=== PATIENT | female | born 1960 | race Caucasian/White ===

== ENCOUNTER → 2016-09-21 | Outpatient (CLI) | payer OTHER | LOC: FIMAGING 12:12 | DX: Z12.31 Encounter for screening mammogram for malignant neoplasm of breast (principal) | CPT/HCPCS: G0202 ==

== ENCOUNTER 2018-07-13 18:39 | Emergency (ER) | payer OTHER ==
--- NOTE | 2018-07-13 18:45 | EDPHY ---
H & P Time Seen by Provider: 07/13/18 18:44 - Medical/Surgical History Hx Diabetes: No - Social History Smoking Status: Former smoker Constitutional: Initial Vital Signs Heart Rate 89 07/13/18 18:47 Respiratory Rate 16 07/13/18 18:47 Blood Pressure 165/76 H 07/13/18 18:47 O2 Sat (%) 94 07/13/18 18:47 O2 Delivery Mode Room Air Allergies/Adverse Reactions: meloxicam Allergy (Verified 07/08/18 15:01) Sulfa (Sulfonamide Antibiotics) Allergy (Verified 07/08/18 15:01) Home Medications: Medication Instructions Recorded LORazepam [Ativan 1 mg (RX)] 1 mg PO QID PRN #7 tab 07/13/18 Medical Decision Making ED Course/Re-evaluation: CHIEF COMPLAINT: Palpitations HISTORY OF PRESENT ILLNESS: This patient is a 58 year old female arriving with her family. She states she is here because she "[messed] up". She has history of alcoholism and has been sober for about 5 ears, but started drinking heavily again about 10 days ago. She has an upcoming hip replacement surgery in six days with Dr. Sanabria and states she wants help to stop drinking so that she can proceed with surgery. Today, she complains of heart palpitations and difficulty concentrating. She states she feels her "brain isn't working". She states her last drink was pinot grigio, shortly prior to arrival here. She generally drinks this or vodka. She is feeling jittery currently and believes this is due to anxiety about her surgery rather than withdrawal at this time. She and her family are additionally concerned for cardiac etiology of her symptoms and wish to rule out any evidence of MO or other acute cardiac processes. She denies chest pain, shortness of breath, fever, or other associated symptoms. REVIEW OF SYSTEMS: A comprehensive 10 system review of systems is otherwise negative aside from elements mentioned in the history of present illness and medical decision making. PHYSICAL EXAM: HR, BP, O2 Sat, RR. Temp noted General Appearance: Alert, well hydrated, appropriate, and non-toxic appearing. Head: Atraumatic without scalp tenderness or obvious injury Eyes: Pupils equal, round, reactive to light and accommodation, EOMI, no trauma , no injection. Ears: Clear bilaterally, no perforation, normal landmarks Nose: Atraumatic, no rhinorrhea, clear. Throat: There is no erythema or exudates, no lesions, normal tonsils, mucus membranes moist. Neck: Supple, 2+ carotid upstroke, nontender, no lymphadenopathy. Respiratory: No retractions, no distress, no wheezes, and no accessory muscle use. Lungs are clear to auscultation bilaterally. Cardiovascular: Regular rate and rhythm, no murmurs, rubs, or gallops. Bilateral carotid, radial, dorsalis pedis, and posterior tibial pulses intact. Good capillary refill all extremities. Gastrointestinal: Abdomen is soft, nontender, non-distended, no masses, no rebound, no guarding, no peritoneal signs. Musculoskeletal: Normal active ROM of all extremities, atraumatic. Neurological: Alert, appropriate, and interactive. The patient has normal DTRs and non-focal cranial nerves, motor, sensory, and cerebellar exam. Skin: No rashes, good turgor, no nodules on palpation. Past medical history: History of alcoholism, sober for 5 years until current episode. Past surgical history: Noncontributory Family history: Noncontributory Social history: Family at bedside. Lives in [place]. Does not abuse tobacco or illicit drugs. DIFFERENTIAL DIAGNOSIS: The differential diagnosis for the patient's chest pain included but was not limited to myocardial ischemia, pulmonary embolus, chest wall pain, pleural inflammation, and pulmonary infectious causes. MEDICAL DECISION MAKIN58 y/o female with history of alcoholism presents with palpitations after drinking heavily for the past 10 days after five years of sobriety. She and her family are concerned for cardiac etiology of symptoms. Plan for EKG, labs including CBC, chemistries, troponin. The 12 lead EKG was interpreted by myself. See hard copy and/or "tracemaster" electronic copy for interpretation. Sinus rhythm. No evidence of ischemia. LFTs elevated. Labs otherwise largely unremarkable. Troponin negative. Reassessed. Discussed negative cardiac workup. Plan to discharge home in good condition. Discussed follow up at the [facility], but the patient and her family prefer management at home. The patient agrees to go home with her mother this evening. We discussed the importance of remaining sober for her surgery. She understands this and wishes to comply. I discussed care and withdrawal with her and her mother. I will provide a prescription for Ativan for withdrawal symptoms and Zofran for nausea relief. Dosing instructions discussed in detail. The patient's mother will manage her medication. The patient agrees with this plan. Follow and return precautions discussed. The patient and her family are comfortable with this plan. - Data Points Laboratory Results: Laboratory Results 07/13/18 18:50 07/13/18 18:50 07/13/18 07/13/18 07/13/18 18:55 18:50 18:50 WBC 5.82 10^3/uL 10^3/uL (3.80-9.50) RBC 4.88 10^6/uL 10^6/uL (4.18-5.33) Hgb 15.4 g/dL g/dL (12.6-16.3) Hct 44.3 % % (38.0-47.0) MCV 90.8 fL fL (81.5-99.8) MCH 31.6 pg pg (27.9-34.1) MCHC 34.8 g/dL g/dL (32.4-36.7) RDW 14.9 % % (11.5-15.2) Plt Count 151 10^3/uL 10^3/uL (150-400) MPV 11.0 fL fL (8.7-11.7) Neut % (Auto) 54.8 % % (39.3-74.2) Lymph % (Auto) 33.2 % % (15.0-45.0) Fisher % (Auto) 11.3 % % (4.5-13.0) Eos % (Auto) 0.2 % L % (0.6-7.6) Baso % (Auto) 0.2 % L % (0.3-1.7) Nucleat RBC Rel Count 0.0 % % (0.0-0.2) Absolute Neuts (auto) 3.19 10^3/uL 10^3/uL (1.70-6.50) Absolute Lymphs (auto) 1.93 10^3/uL 10^3/uL (1.00-3.00) Absolute Monos (auto) 0.66 10^3/uL 10^3/uL (0.30-0.80) Absolute Eos (auto) 0.01 10^3/uL L 10^3/uL (0.03-0.40) Absolute Basos (auto) 0.01 10^3/uL L 10^3/uL (0.02-0.10) Absolute Nucleated RBC 0.00 10^3/uL 10^3/uL (0-0.01) Immature Gran % 0.3 % % (0.0-1.1) Immature Gran # 0.02 10^3/uL 10^3/uL (0.00-0.10) Sodium 134 mEq/L L mEq/L (135-145) Potassium 5.0 mEq/L mEq/L (3.5-5.2) Chloride 98 mEq/L mEq/L (97-110) Carbon Dioxide 22 mEq/l mEq/l (22-31) Anion Gap 14 mEq/L mEq/L (6-14) BUN 9 mg/dL mg/dL (7-23) Creatinine 0.7 mg/dL mg/dL (0.6-1.0) Estimated GFR > 60 Glucose 131 mg/dL H mg/dL (70-100) Calcium 9.2 mg/dL mg/dL (8.5-10.4) Magnesium 1.9 mg/dL mg/dL (1.6-2.3) Total Bilirubin 1.3 mg/dL mg/dL (0.1-1.4) Conjugated Bilirubin 0.5 mg/dL mg/dL (0.0-0.5) Unconjugated Bilirubin 0.8 mg/dL mg/dL (0.0-1.1) AST 116 IU/L H IU/L (14-46) ALT 91 IU/L H IU/L (9-52) Alkaline Phosphatase 109 IU/L IU/L (38-126) POC Troponin I 0.01 ng/mL ng/mL (0.00-0.08) Total Protein 7.9 g/dL g/dL (6.3-8.2) Albumin 4.8 g/dL g/dL (3.5-5.0) Lipase 188 IU/L IU/L (23-300) Specimen Hemolysis 128 Medications Given: Discontinued Medications Sodium Chloride (Ns) 500 mls @ 1,000 mls/hr IV EDNOW ONE PRN Reason: Protocol Stop: 07/13/18 19:20 Last Admin: 07/13/18 19:10 Dose: 500 mls Lorazepam (Ativan 1 Mg Prepack#4) 1 btl TAKEHOME EDNOW ONE Stop: 07/13/18 19:45 Last Admin: 07/13/18 20:00 Dose: 1 btl Ondansetron HCl (Zofran Odt 4 Mg Prepack#2) 1 btl TAKEHOME EDNOW ONE Stop: 07/13/18 19:45 Last Admin: 07/13/18 20:00 Dose: 1 btl Point of Care Test Results: Chemistry 07/13/18 18:55 POC Troponin I 0.01 ng/mL ng/mL (0.00-0.08) Departure - Departure Disposition: Home, Routine, Self-Care Clinical Impression: Alcohol intoxication Qualifiers: Complication of substance-induced condition: uncomplicated Qualified Code(s): F10.920 - Alcohol use, unspecified with intoxication, uncomplicated Condition: Good Instructions: Lorazepam (By mouth), Ondansetron (By mouth), Alcohol Intoxication (ED) Additional Instructions: There is no evidence of cardiac etiology of your symptoms based on our workup today. Please go home with your mother as we discussed. Your mother may dispense Ativan to you as prescribed. Take 1mg Ativan for withdrawal symptoms. You may take 1mg every six hours if symptoms are severe. Do not take this medication for more than three days. You may take 4mg Zofran every six hours as prescribed as needed for nausea. It is very important that you avoid alcohol use given your upcoming surgery. Please contact your surgeon's office with any questions or concerns regarding your procedure. Please continue your normal pre-operative care as directed by your surgeon. Please follow up with your primary care provider for further assistance. Return to the emergency department for fever, chest pain, difficulty breathing, vomiting, or other worsening of condition. Referrals: Noemi Chavez MD [Primary Care Provider] - As per Instructions Prescriptions: LORazepam [Ativan 1 mg (RX)] 1 mg PO QID PRN #7 tab PRN Reason: Anxiety Report Scribed for: Zackery Chiu Report Scribed by: Olya Weems Date of Report: 07/13/18 Time of Report: 20:18
[2018-07-13] MEDS ORDERED: NS 500 ML IV ONE (18:51)
[2018-07-13 19:00] LABS: PLATELET COUNT 151 10^3/uL (150-400)
[2018-07-13] MEDS ORDERED: LORAZEPAM 1 MG PREPACK#4 BTL TAKEHOME ONE (19:44)
[2018-07-13] MEDS ORDERED: ONDANSETRON 4MG PREPACK#2 BTL TAKEHOME ONE (19:44)
[2018-07-13 19:50] VITALS: BP 131/76
--- NOTE | 2018-07-13 19:50 | CPEKG ---
Test Reason : OPEN Blood Pressure : / mmHG Vent. Rate : 073 BPM Atrial Rate : 073 BPM P-R Int : 173 ms QRS Dur : 081 ms QT Int : 403 ms P-R-T Axes : 005 -02 032 degrees QTc Int : 444 ms Sinus rhythm Minimal ST elevation, inferior leads Confirmed by Zackery Chiu ([id number]) on 07/13/2018 7:49:55 PM Referred By: Zackery Chiu Confirmed By:Zackery Chiu
== END 2018-07-13 20:05 | disposition home or self-care (01) ==
DX: F10.920 Alcohol use, unspecified with intoxication, uncomplicated (principal); R00.2 Palpitations
CPT/HCPCS: 84484-ER

== ENCOUNTER 2018-07-19 05:41 | Inpatient (IN) | payer BC, OTHER ==
--- NOTE | 2018-07-08 15:55 | GHP ---
DATE OF ADMISSION: 07/19/2018 [facility]. PROBLEM: Right hip arthritis. HISTORY OF PRESENT ILLNESS: The patient is a 58-year-old woman admitted for a right total hip arthro plasty. She has had progressive pain in her right hip over the last couple of years. She has had 2 previous cortisone injections. She has also had [facility]P injections at [facility]. The pain has been progressive. She is having daily pain and night pain. She can only walk for about 30 minutes b efore the hip is very painful. She normally likes to hike and bicycle. She has been using CBD tinct ure. She has also tried glucosamine and chondroitin. PAST MEDICAL HISTORY: The patient states that in 2012 she had an anxiety heart attack. She has not had any subsequent problems. A week or so ago, she was started on meloxicam and had some type of anx iety reaction to the medication, which caused tachycardia. No history of DVT, hepatitis, MRSA staph infections, sleep apnea or bleeding problems. She does not take aspirin regularly. DRUG ALLERGIES: Sulfa caused a rash. Meloxicam caused tachycardia. Metal allergy: None. Latex al lergy: None. SOCIAL HISTORY: The patient is single and lives alone. She does not smoke cigarettes or drink alcoh ol. 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 PHYSICAL EXAMINATION: VITAL SIGNS: Height 5 feet 8 inches. Weight 180 pounds. BMI 27.4. EYES: C onjunctivae and sclerae are clear. Pupils are round and reactive. MOUTH: Good oral hygiene. No lo ose teeth. CHEST: Clear. HEART: Regular rhythm. No murmurs. EXTREMITIES: Pertinent findings ar e limited to her right hip. She has full extension and 80 degrees of flexion. As she flexes the hip , she develops a 20-degree external rotation contracture and has no further internal or external rota tion. Abduction 20 degrees. IMAGING: Films from March 28, 2018, show degenerative arthritis in the right hip. It looks like s he has some degenerative disk disease in the lower lumbar spine. IMPRESSION ON ADMISSION: 1. Right hip advanced degenerative arthritis. She is prepared for right total hip arthroplasty. 2. History of anxiety heart attack. 3. Anxiety. PLAN: She will undergo a right total hip arthroplasty. The surgery has been described to her, inclu ding the risks, complications, expectations, and recovery time. I have discussed with her and with h er mother the risk of dislocation, leg length inequality, infection, and sciatic nerve injury. I hav e advised her that she is relatively young for a total hip replacement and might need revision surger y in the future. All their questions have been answered and she consents to surgery. Even though she has a sulfa allergy, I am going to try to use Celebrex postoperatively for pain contr ol. /[id number]/MODL
[2018-07-19] MEDS ORDERED: POVIDONE-IODINE 20 ML in SODIUM CL IRRIG SOLUTION 500 ML IRR ONE (06:00)
[2018-07-19] MEDS ORDERED: TRANEXAMIC ACID 3,000 MG in NS (SYRINGE) 50 ML IRR ONE (06:00)
[2018-07-19] MEDS ORDERED: ROPIVACAINE 0.2% 80 MG, EPINEPHrine 0.2 MG, KETOROLAC TROMETHAMINE 30 MG in SYRINGE 0 ML IU ONE (06:00)
[2018-07-19] MEDS ORDERED: TRANEXAMIC ACID 1,000 MG in NS 100 ML IV ONE (06:00)
[2018-07-19] MEDS ORDERED: FAMOTIDINE 20 MG TAB PO ONE (06:18)
[2018-07-19] MEDS ORDERED: ONDANSETRON 4 MG/2 ML VIAL IVP ONE (06:18)
[2018-07-19] MEDS ORDERED: ceFAZolin 2 GM/DEXTROSE 100 ML IV ONE (06:18)
[2018-07-19] MEDS ORDERED: GABAPENTIN 300 MG CAP PO ONE (06:18)
[2018-07-19] MEDS ORDERED: ACETAMINOPHEN 325 MG TAB PO ONE (06:18)
[2018-07-19] MEDS ORDERED: DEXAMETHASONE 4 MG/ML VIAL IVP ONE (06:18)
[2018-07-19] MEDS ORDERED: LR 1,000 ML IV ONE (06:21)
[2018-07-19] MEDS ORDERED: LIDOCAINE 1% 2 ML INJ ID PRN (06:21)
[2018-07-19] MEDS ORDERED: TRANEXAMIC ACID 3,000 MG/50 ML BAG IRR ONE (07:34)
[2018-07-19] MEDS ORDERED: ceFAZolin 1 GM VIAL ONE (07:34)
[2018-07-19] MEDS ORDERED: ceFAZolin 1 GM/5 ML SYR ONE (07:35)
[2018-07-19] MEDS ORDERED: MIDAZOLAM 2 MG/2 ML VIAL ONE (07:51)
[2018-07-19] MEDS ORDERED: PROPOFOL/EMULSION 500 MG/50 ML BOTTLE IV ONE (07:58)
[2018-07-19] MEDS ORDERED: LIDOCAINE 2% 100 MG/5 ML SYR ONE (07:58)
[2018-07-19] MEDS ORDERED: BUPIVACAINE/DEXTROSE 7.5MG/ML 2 ML SPINAL AMP SP ONE (07:58)
--- NOTE | 2018-07-19 07:58 | PDHPUP ---
History & Physical Update H&P update statement: This history and physical update is based on an assessment of the patient which was completed after admission or registration (within 24 hours), but prior to the surgery/procedure. H&P update: H&P reviewed & patient examined
[2018-07-19] MEDS ORDERED: MIDAZOLAM 2 MG/2 ML VIAL IVP ONE (08:05)
--- NOTE | 2018-07-19 08:30 | PDANEPAE ---
ANE History of Present Illness right hip OA ANE Past Medical History - Cardiovascular History Hx Hypertension: No Hx Arrhythmias: No Hx Chest Pain: No Hx Coronary Artery / Peripheral Vascular Disease: No Hx CHF / Valvular Disease: No Hx Palpitations: No Cardiovascular History Comment: ebony 2012 - Pulmonary History Hx COPD: No Hx Asthma/Reactive Airway Disease: No Hx Recent Upper Respiratory Infection: No Hx Oxygen in Use at Home: No Hx Sleep Apnea: No Sleep Apnea Screening Result - Last Documented: Negative - Neurologic History Hx Cerebrovascular Accident: No Hx Seizures: No Hx Dementia: No - Endocrine History Hx Diabetes: No - Renal History Hx Renal Disorders: No - Liver History Hx Hepatic Disorders: No - Neurological & Psychiatric Hx Hx Neurological and Psychiatric Disorders: No Neurological / Psychiatric History Comment: situational anxiety - Cancer History Hx Cancer: No - Congenital Disorder History Hx Congenital Disorders: No - GI History Hx Gastrointestinal Disorders: No - Other Health History Other Health History: none - Chronic Pain History Chronic Pain: No - Surgical History Prior Surgeries: breast reduction 1991 ANE Review of Systems Review of systems is: negative Review of Systems: - Exercise capacity METS (RN): 4 METS ANE Patient History - Allergies Allergies/Adverse Reactions: meloxicam Allergy (Verified 07/08/18 15:01) Sulfa (Sulfonamide Antibiotics) Allergy (Verified 07/08/18 15:01) - Home Medications Home medications: home medication list seen and reviewed - NPO status NPO Since - Liquids (Date): 07/18/18 NPO Since - Liquids (Time): 21:00 NPO Since - Solids (Date): 07/18/18 NPO Since - Solids (Time): 17:00 - Anes Hx Anes Hx: no prior problems - Smoking Hx Smoking Status: Former smoker - Family Anes Hx Family Hx Anesthesia Complications: none ANE Labs/Vital Signs - Vital Signs Blood Pressure: 136/74 Heart Rate: 71 Respiratory Rate: 18 O2 Sat (%): 94 Height: 172.72 cm Weight: 81.647 kg ANE Physical Exam - Airway Neck exam: FROM Mallampati Score: Class 2 Mouth exam: normal dental/mouth exam - Pulmonary Pulmonary: no respiratory distress - Cardiovascular Cardiovascular: regular rate and rhythym - ASA Status ASA Status: II ANE Anesthesia Plan Anesthesia Plan: spinal Urgent/Emergent Case: Rukhsana monteiro completed preop but documented later for safe timely pt care
--- NOTE | 2018-07-19 08:38 | POSTANESTH ---
Post Anesthetic Evaluation Cardiovascular Status: Normal, Stable Respiratory Status: Normal, Stable Level of Consciousness/Mental Status: Can Participate in Eval, Alert and Oriented Pain Control: Adequate, Prn Tx Ordered Nausea/Vomiting Control: Adequate, Prn Tx Ordered Complications Possibly Related to Anesthesia: None Noted
[2018-07-19] MEDS ORDERED: ALBUTEROL 3 ML DEYVIAL IH PRN (08:57)
[2018-07-19] MEDS ORDERED: ACETAMINOPHEN 500 MG TAB PO PRN (08:57)
[2018-07-19] MEDS ORDERED: fentaNYL 100 MCG/2 ML INJ IVP PRN (08:57)
[2018-07-19] MEDS ORDERED: HYDROmorphONE/DILAUDID 2 MG/ML INJ IVP PRN (08:57)
[2018-07-19] MEDS ORDERED: oxyCODONE IR 5 MG TAB PO PRN (08:57)
[2018-07-19] MEDS ORDERED: LR 500 ML IV PRN (08:57)
[2018-07-19] MEDS ORDERED: ONDANSETRON 4 MG/2 ML VIAL IVP PRN ×2 (08:57→09:53)
[2018-07-19] MEDS ORDERED: NALOXONE HCL 0.4 MG/ML INJ IVP PRN (08:57)
[2018-07-19] MEDS ORDERED: HYDROCODONE/APAP 5/325 TAB PO PRN (08:57)
[2018-07-19] MEDS ORDERED: PROPOFOL 200 MG/20 ML VIAL ONE ×2 (09:02)
--- NOTE | 2018-07-19 09:44 | POSTOPPROG ---
Post Op Note Date of Operation: 07/19/18 Surgeon: Brian Sanabria Managing Cognitive Engineer: Emory Anesthesiologist: Zeus Anesthesia: IV Sedation, Spinal Post-op Diagnosis: Right hip degenerative arthritis. Procedure: Right total hip arthroplasty. Inf/Abcess present in the surg proc area at time of surgery?: No EBL: 100-500
[2018-07-19] MEDS ORDERED: PROMETHAZINE HCL 25 MG SUPPR PR PRN (09:53)
[2018-07-19] MEDS ORDERED: traMADol 50 MG TAB PO PRN (09:53)
[2018-07-19] MEDS ORDERED: diphenhydrAMINE 25 MG CAP PO PRN (09:53)
[2018-07-19] MEDS ORDERED: POLYETHYLENE GLYCOL 3350 17 GM PKT PO PRN (09:53)
[2018-07-19] MEDS ORDERED: LACTULOSE 20 GM/30 ML UDCUP PO PRN (09:53)
[2018-07-19] MEDS ORDERED: BISACODYL 10 MG SUPP PR PRN (09:53)
[2018-07-19] MEDS ORDERED: DIPHENOXYLATE/ATROPINE LOMOTIL 1 TAB PO PRN (09:53)
[2018-07-19] MEDS ORDERED: TEMAZEPAM 15 MG CAP PO PRN (09:53)
[2018-07-19] MEDS ORDERED: MAGNESIUM HYDROXIDE 30 ML UDCUP PO PRN (09:53)
[2018-07-19] MEDS ORDERED: NS 500 ML IV PRN (09:53)
[2018-07-19] MEDS ORDERED: CYCLOBENZAPRINE 10 MG TAB PO PRN (09:53)
[2018-07-19] MEDS ORDERED: PROMETHAZINE HCL 25 MG/ML INJ IVP PRN (09:53)
[2018-07-19] MEDS ORDERED: METOCLOPRAMIDE 10 MG/2 ML VIAL IVP PRN (09:53)
[2018-07-19] MEDS ORDERED: ONDANSETRON DISINTEGRATING 4 MG TAB PO PRN (09:53)
[2018-07-19] MEDS ORDERED: LR 1,000 ML IV SCH (10:00)
--- NOTE | 2018-07-19 10:32 | PDMN ---
Medical Necessity Medical necessity: Pt meets inpt criteria per MD order and [facility] S-560, Hip Arthroplasty, [facility] inpt only list. 58 y/o w/R hip degen arthritis admitted for R total hip arthroplasty and post-op care.
--- NOTE | 2018-07-19 10:42 | GOP ---
[f rep st] OPERATIVE REPORT DATE OF OPERATION: 07/19/2018 SURGEON: Brian Sanabria MD NEUROSURGEON: Brian Sanabria MD. RESIDENT PHYSICIAN IN RADIOLOGY: 1. Cristian Dillon CFA. 2. Haim Dillon, PAC. ANESTHESIA: A combination of Marcaine, spinal and IV sedation. ANESTHESIOLOGIST: Isai Schulz MD. PREOPERATIVE DIAGNOSIS: Right hip arthritis. POSTOPERATIVE DIAGNOSIS: Right hip arthritis. PROCEDURE PERFORMED: 07/19/2018, a right total hip arthroplasty, ceramic femoral head on highly cros s-linked polyethylene cup liner. FINDINGS: ESTIMATED BLOOD LOSS: About 300 mL. DESCRIPTION OF PROCEDURE: The patient was given 2 g of IV Ancef preoperatively within 60 minutes of surgery. She also received 1000 mg of IV tranexamic acid. She was placed on the operating room tabl e and given spinal anesthesia with Marcaine by Dr. Schulz. She was then placed supine and given IV sedation. A You catheter was not used. She wore a CHETAN stocking and SCD on the nonoperative leg. She was rolled to the left lateral decubitus position. The position was secured with the pegboard t able attachment. An axillary roll was used and all pressure points were carefully padded. I was car eful to lock her pelvis in a rigid vertical position. Her perineum was isolated with plastic adhesiv e drapes. Her right hip and right lower extremity were prepped with ChloraPrep. They were draped fr ee using sterile sheets, stockinette and Ioban plastic drapes. The [employer] time-ou t was performed to verify the correct patient identity and the correct surgical side and site. The [facility] time-out was also performed. I made a 5-inch straight oblique posterolateral hip skin incision. Subcutaneous tissues were sharply divided and hemostasis was obtained using electrocautery. The fascia meenu was identified and split along the axis of its fibers proximally. I then curved posteriorly and proximally split the fascia o f the gluteus clyde and bluntly split the muscle fibers inline with their orientation. The Charnle y self-retaining retractor was inserted. Her sciatic nerve was located and protected throughout the procedure. The external rotators and the posterior hip capsule were divided as separate layers at th e base of the femoral neck, tagged and reflected posteriorly. A smooth 8-inch Steinmann pin was inse rted vertically into the ilium, superior to the acetabulum. An 8-inch drill bit was inserted vertica lly into the greater trochanter and parallel to the first pin. The distance between the two was shantanu ured for leg-length reference. Her femoral head was dislocated posteriorly. Degenerative changes we re present on the femoral head. The femoral neck was osteotomized at the appropriate level and incli nation. I was careful to preserve all the posterior capsule and most of the anterior capsule. The remnant of her damaged labrum was excised. I prepared the femur first. This allowed me to sales service promoter the amount of natural femoral neck anteversion. This, in turn, allowed me to determine the correct amount of cup anteversion. She had approximatel y 15 degrees of natural femoral neck anteversion. The canal was opened laterally with a box chisel. I hand broached sequentially up to size 4. I used a Campos Accolade II size [address] a trial [address] em. I was careful to lateralize adequately. Appropriate retractors were inserted to expose the acetabulum. The acetabulum was reamed sequentiall y to 52 mm. I selected the 52 mm Campos Tritanium Trident II cluster-hole hemispherical shell. Thi s was tapped securely into place in the proper degree of inclination and anteversion. I used the tra nsverse acetabular ligament and other acetabular bony landmarks to help me properly orient the cup. She had a moderately large anterior acetabular osteophyte, which I removed with an osteotome and adilene eur. I performed a series of trial reductions to determine length and stability. I obtained an intraopera tive cross-table AP pelvis x-ray. I concluded that the size 4 stem with high offset with the 0 neck and a 36 mm head with a 0-degree liner gave me the proper combination of appropriate length and good anterior and posterior stability. She was a few millimeters short preoperatively and I was intention ally lengthening her. The 0-degree Campos X3 highly cross-linked polyethylene liner was inserted and tapped securely into place. The Campos Accolade II stem in a size 4 with standard offset was inserted, press fit and was very tight. I did one final trial reduction and confirmed that the 0 neck length with a 36 mm head was the proper combination. The [place] Biolox Delta ceramic head with an outside diameter of 36 mm and a neck length of 0 mm was tapped securely onto the clean trunnion. The acetabulum was irrigated, cleaned and the hip was reduced one final time. She had excellent anterior and posterior stability and appropriate length. 40 mL of the joint anesthetic cocktail was injected into the capsule, the deep musculature and subcut aneous tissue around the skin edges. The joint was thoroughly irrigated one final time with a dilute Betadine solution. 50 mL of tranexamic acid solution was irrigated into the wound. Her sciatic ner ve was reinspected and looked unharmed. The external rotators and the posterior capsule were repaired in separate layers with #2 FiberWire fish tures through drill holes in the greater trochanter. This provided a strong posterior capsular and e xternal rotator repair. The fascia meenu was closed first with 2 interrupted [id number] #2 Fiber Wire sutures followed by a running #2 barbed Ethicon Stratafix PDO suture. The subcutaneous tissues were closed in layers with interrupted 2-0 Monocryl sutures followed by a running [address]atafix Monoderm suture. The skin was closed with a running 3-0 barbed Ethicon Stratafix Monoderm fish bcuticular suture. The skin edges were reapproximated and sealed with Dermabond glue. The wound was covered with a large piece of waterproof sterile Mepilex surgical dressing. The sacral Mepilex dres sing was also applied. A long-leg CHETAN stocking and SCD were applied to her right lower extremity. She wore a stocking and S CD on the opposite leg during the procedure. An abduction pillow was placed between her knees. She was awakened from anesthesia and rolled to the supine position on her [facility]. She was taken to PACU in satisfactory condition. There were no recognized intraoperative complications. COUNTS: The sponge and needle counts were correct on 2 occasions. I used a Campos Tritanium Trident II hemispherical cluster-hole acetabular shell with an outside maite meter of 52 mm. The liner was a Campos X3 0-degree highly cross-linked liner with an inside diamete r of 36 mm. The femoral component was a press-fit Campos standard offset Accolade II stem in a size 4. Her femoral head was a Campos Biolox Delta ceramic head with a 0 neck length and a 36 mm outsid e diameter. Cristian Dillon and Benjie Dillon acted as surgical assistants. Their assistance was a medical necess ity for safe completion of the procedure. /[id number]/MODL
[2018-07-19] MEDS: ACETAMINOPHEN 325 MG TAB PO SCH ×2 (11:52→17:58)
[2018-07-19] MEDS: KETOROLAC 15 MG/1 ML SDV IVP SCH ×2 (11:53→18:02)
[2018-07-19] MEDS: ceFAZolin 2 GM/DEXTROSE 100 ML IV SCH (14:27)
[2018-07-19] MEDS: oxyCODONE IR 5 MG TAB PO PRN ×3 (14:28→20:43)
[2018-07-19] MEDS: SENNOSIDES/DOCUSATE SODIUM TAB PO SCH (20:41)
[2018-07-19] MEDS: FAMOTIDINE 20 MG TAB PO SCH (20:41)
[2018-07-19] MEDS: ASPIRIN 325 MG TAB PO SCH (22:21)
[2018-07-20] MEDS ORDERED: ceFAZolin 2 GM/DEXTROSE 100 ML IV SCH (00:45)
[2018-07-20] MEDS: KETOROLAC 15 MG/1 ML SDV IVP SCH ×2 (00:48→05:58)
[2018-07-20] MEDS: ACETAMINOPHEN 325 MG TAB PO SCH ×2 (00:49→05:58)
[2018-07-20] MEDS: ceFAZolin 2 GM/DEXTROSE 100 ML IV SCH (00:53)
[2018-07-20 07:15] VITALS: BP 101/59
[2018-07-20] MEDS ORDERED: FERROUS SULFATE 325 MG TAB PO SCH (08:00)
[2018-07-20] MEDS: SENNOSIDES/DOCUSATE SODIUM TAB PO SCH (08:46)
[2018-07-20] MEDS: FAMOTIDINE 20 MG TAB PO SCH (08:47)
[2018-07-20] MEDS: ASPIRIN 325 MG TAB PO SCH (08:47)
[2018-07-20] MEDS: oxyCODONE IR 5 MG TAB PO PRN (08:53)
--- NOTE | 2018-07-20 09:20 | SOAPPROG ---
SOAP Progress Note Assessment/Plan: Assessment: Afebrile. Up in chair Has been walking in vera. Dsg is dry. H/H is good. Films look good. Sciatic nerve intact. Plan:DC today. 07/20/18 09:19 Objective: Vital Signs Temp Pulse Resp BP Pulse Ox 36.7 C 77 16 101/59 L 96 07/20/18 07:13 07/20/18 07:13 07/20/18 07:13 07/20/18 07:13 07/20/18 07:13 Laboratory Results 07/20/18 05:19 07/19/18 07/20/18 07/21/18 05:59 05:59 05:59 Intake Total 3095 Output Total 3350 350 Balance -255 -350 ICD10 Worksheet Patient Problems: Problems Problem Status Onset Osteoarthritis of right hip Acute
--- NOTE | 2018-07-20 09:40 | ASMTLACE ---
LACE Length of stay for Answers: 2 days current admission Acuity / Level of Answers: Yes Care: Did the patient have an inpatient admission? Comorbidities - select Answers: Previous myocardial all that apply infarction # of Emergency department Answers: 1-2 visits in the last 6 months Score: 7 Date Signed: 07/20/2018 09:40 AM Electronically Signed By:EDITH Erazo
--- NOTE | 2018-07-20 09:40 | GDS ---
[f rep st] DISCHARGE SUMMARY ADMISSION DIAGNOSIS: Right hip degenerative arthritis. DISCHARGE DIAGNOSIS: Right hip degenerative arthritis. OPERATION PERFORMED: 07/19/2018, a right total hip arthroplasty, ceramic femoral head on highly cros s-linked polyethylene cup liner. POSTOPERATIVE COMPLICATIONS: None. CONDITION ON DISCHARGE: Improved. DESCRIPTION OF HOSPITAL COURSE: The patient was admitted to the hospital on the morning of surgery. Her admission hemoglobin and hematocrit were 11.4 and 35.0. Sodium 134, potassium 5, BUN and creati nine 9 and 0.7. The same day, under a combination of Marcaine, spinal, and IV sedation, she underwen t a right total hip arthroplasty. Postoperatively, she was treated with multimodal DVT prophylaxis, including aspirin. On the first postoperative day, her hemoglobin and hematocrit were 11.4 and 35.0. She was seen by Physical Therapy and made good progress with ambulation. By the time of discharge, she was afebrile, her wound was clean and dry, and she was independent walking with a walker. DISPOSITION: The patient is discharged to her home in the care of her mother. She may progress to f ull weightbearing on the right as tolerated. She will go to outpatient physical therapy next week in [place]. Continue CHETAN stockings for 1 week. Abduction pillow in bed for 3 weeks. Continue aspirin 3 25 mg p.o. daily for 21 days. She has prescriptions for Celebrex, tramadol and oxycodone for pain co ntrol. I will see her back in the office on August 01. If there are any problems, she is to adela steward at the office. /[id number]/MODL
--- NOTE | 2018-07-20 10:50 | ASMTCMCOM ---
CM Note CM Note Notes: Pt had planned OA of hip. PT rec home/outpatient. Pt medically stable for d/c, no CM d/c needs identified. Date Signed: 07/20/2018 10:49 AM Electronically Signed By:EDITH Erazo
== END 2018-07-20 11:45 | disposition home or self-care (01) | DRG 470 ==
LOC: F3N 05:41
PROVIDERS: ADMIT Orthopaedic Surgery; ATTEND Orthopaedic Surgery
PROC: 0SR904A Replacement of Right Hip Joint with Ceramic on Polyethylene Synthetic Substitute, Uncemented, Open Approach (ICD-10-PCS; principal; 2018-07-19 08:15)
DX: M16.11 Unilateral primary osteoarthritis, right hip (principal); F41.9 Anxiety disorder, unspecified
CPT/HCPCS: 97116-GP; 97161-GP; 97165-GO; 97530-GP; 97535-GO; J0171; J0690; J1100; J1885; J2001; J2250; J2405; J2704; J2795

== ENCOUNTER → 2018-10-31 | Outpatient (CLI) | payer OTHER | LOC: FIMAGING 11:46 | PROVIDERS: ATTEND Internal Medicine | DX: Z12.31 Encounter for screening mammogram for malignant neoplasm of breast (principal) ==